=== PATIENT | male | born 2000 | race African-American/Black ===

== ENCOUNTER 2020-02-20 00:13 | Emergency (ER) | payer OTHER ==
[~2020-02-20] VITALS: Ht 180.3 cm; Wt 82.5 kg
[2020-02-20] MEDS ORDERED: KETOROLAC TROMETHAMINE 10 MG TAB PO ONE (00:30)
[2020-02-20] MEDS ORDERED: BACTRIM 160MG/800MG DS TAB PO ONE (01:15)
[2020-02-20] MEDS ORDERED: BACT800T5 PO (01:16)
[2020-02-20] MEDS ORDERED: KETO10TAB PO (01:16)
[2020-02-20 01:19] VITALS: BP 158/98
--- NOTE | 2020-02-20 02:48 | REP ---
Clinical: Trauma. Technique: AP, lateral, bilateral oblique views left third digit . Findings: Lateral view best demonstrates mild generalized swelling. The osseous structures and joint spaces are intact and normal. There is no evidence for acute fracture or dislocation. No subcutaneous emphysema or radiodense foreign body. Impression: No acute fracture or dislocation. Electronically Signed by Ortiz Hunt MD 02/20/2020 02:39 A
== END 2020-02-20 01:23 | disposition home or self-care (01) ==
LOC: M ED 00:13
DX: L03.012 Cellulitis of left finger (principal); W22.8XXA Striking against or struck by other objects, initial encounter; Y92.138 Other place on military base as the place of occurrence of the external cause; Y93.89 Activity, other specified; Y99.1 Military activity